=== PATIENT | female | born 1975 | race Two or more races ===

== ENCOUNTER 2020-10-26 09:57 | Outpatient (CLI) | payer OTHER | END 2020-10-26 10:09 | disposition home or self-care (01) | LOC: MAMO-SONO 09:57 | PROVIDERS: ATTEND Student in an Organized Health Care Education/Training Program | DX: N60.11 Diffuse cystic mastopathy of right breast (principal); N60.12 Diffuse cystic mastopathy of left breast ==

== ENCOUNTER 2020-11-22 08:00 | Outpatient (CLI) | payer OTHER | END 2020-11-22 08:30 | disposition home or self-care (01) | LOC: PPH VACUNA 08:00 | DX: Z23 Encounter for immunization (principal) ==

== ENCOUNTER 2020-12-14 08:00 | Outpatient (CLI) | payer OTHER | END 2020-12-14 08:30 | disposition home or self-care (01) | LOC: PPH VACUNA 08:00 | DX: Z23 Encounter for immunization (principal) ==